=== PATIENT | female | born 1945 | race Caucasian/White ===

== ENCOUNTER → 2017-09-14 | Outpatient (CLI) | payer OTHER ==
--- NOTE | 2017-09-14 11:23 | RAD ---
History: Low back pain Study: Lumbar spine two views Findings: AP and lateral views of the lumbar spine demonstrates mild disc space narrowing at the L4-5 level with minimal degenerative anterolisthesis. There is mild endplate spurring at multiple levels. There are advanced degenerative changes of the lower lumbar apophyseal joints. Pedicles are intact a nd no fracture is seen. Impression: Advanced osteoarthrosis and mild spondylosis of the lumbar spine. Reported By:
== END ==
LOC: RAD 10:21
PROVIDERS: ATTEND Internal Medicine
DX: M54.5 Low back pain (principal); M47.896 Other spondylosis, lumbar region
CPT/HCPCS: 72100

== ENCOUNTER 2019-10-06 15:05 | Inpatient (IN) ==
[~2019-10-06 15:05] MED LIST: ACTEMRA IV ONE; NS 100 ML IV IV ONE
[2019-10-06 15:12] VITALS: BMI 45.7
--- NOTE | 2019-10-06 15:20 | DR.EXTPAIN ---
HPI Time seen Time Seen by Provider: 10/06/19 15:19 PCP Primary Care Physician: cecilio HPI Comment HPI Comment: PATIENT IS 74YR OLD FEMALE IN ER WITH INCREASING SOB AND PLEURITIC CHEST PAIN TIMES SEVERAL DAYS BUT WORSE TODAY. PATIENT HAVE POSITIVE COVID 19 TEST. SHE HAS NON PRODUCTIVE COUGH AND GENERALIZED WEAKNESS AND MALAISE. HISTORY HYPOTHYRIODISM.IN ER O2 SAT WAS IN THE 80S. NO FEVER OR DYSURIA. SHE IS IN ER WITH HER WHO IS ALSO COVID 19 POSITIVE. Complaint/Symptoms Chief Complaint Doctor Comments: INCREASING SOB AND POSITIVE COVID 19 TEST. Chief Complaint:: pt has been short of breath for 10 days , tested 9 days ago and was positive for covid. COVID-19 Coronavirus risk:travel/contact w/high risk person: Yes Has patient experienced Coronavirus symptoms: Yes Coronavirus symptoms experienced: Coughing and Shortness of Breath Nurses notes reviewed Nurses Notes Review: Yes Source History Provided: Patient Mode of arrival Mode of Arrival: Ambulatory Timing Onset of Chief Complaint: 09/27/19 Context History of: None Associated signs and symptoms Associated Signs and Symptoms: Weakness, Pain, Cough, Headache, Pleuritic Chest Pain and Shortness of Breath PMH PMH Past Medical History: Yes Past Medical History: Hypothyroidism Past Surgical History: Yes Surgical History: Unknown Family History History of Family Medical Conditions: Yes Family Medical History: Hypertension Social History Does patient currently use any type of tobacco product: No Have you used tobacco products in the last 12 months: No Type of Tobacco Use: None Does any household member use tobacco: No Alcohol Use: None Do you use any recreational Drugs:: No Lives Where: Home Travel Risk Coronavirus risk:travel/contact w/high risk person: Yes Has patient experienced Coronavirus symptoms: Yes Coronavirus symptoms experienced: Coughing and Shortness of Breath Infectious screening In the last 2 months have you had wt loss of >10#?: NO Have you had fever, night sweats or hemotysis?: No Have you traveled outside the country in the last 6 months?: No Isolation: Droplet ROS Review of Systems Constitutional: See HPI, Malaise, Weakness and Fatigue; negative Chills and Fever Eyes: No Symptoms Reported and See HPI ENTM: See HPI and Nose Congestion; negative Ear Pain, Nose Discharge and Throat Pain Respiratoy: See HPI, Non-Productive Cough and Short of Breath; negative Wheezing Cardiovascular: See HPI and Chest Pain; negative Edema and Palpitations Gastrointestinal/Abdominal: No Symptoms Reported and See HPI; negative Abdominal Pain, Diarrhea and Vomiting Genitourinary: No Symptoms Reported and See HPI; negative Dysuria, Frequency and Hematuria Neurological: See HPI, Headache, Weakness and Dizziness Musculoskeletal: See HPI and Muscle Pain; negative Back Pain Integumentary: No Symptoms Reported and See HPI; negative Change in Color, Rash and Juandice Hematologic/Lymphatic: No Symptoms Reported and See HPI; negative Easy Bruising and Swollen Glands Endocrine: See HPI and Decreased Appetite; negative Increased Thirst and Increased Urine Psychiatric: See HPI PE Vital Signs Vitals: Temperature 97.8 F Pulse Rate 61 Respiratory Rate 16 Blood Pressure 147/65 O2 Sat by Pulse Oximetry 96 General Limitations: No Limitations General Appearance: Alert and In Distress (ON EXERTION.) Head Head Exam: Normal Inspection, Atraumatic and Normocephalic Eyes Eye exam: Normal Appearance, PERRL and EOMI; negative Scleral Icterus and Conjunctival Injection ENT ENT Exam: Normal Exam, Normal Oropharynx, Normal External Ear Exam and TM's Normal Bilaterally Neck Neck Exam: Normal Inspection and Trachea Midline; negative Tenderness and Lymphadenopathy Chest Chest Inspection: Symmetric Chest Wall Rise; negative Tenderness Respiratory Respiratory Exam: Respiratory Distress; negative Accessory Muscle Use and Chest Wall Tenderness Respiratory Exam: Bilateral: Rhonchi and Lower: Rhonchi Cardiovascular Cardiovascular Exam: Regular Rate, Normal Rhythm and Normal Heart Sounds; negative Systolic Murmur and Diastolic Murmur Abdominal Exam Abdominal Exam: Normal Inspection, Normal Bowel Sounds and Soft; negative Tenderness Extremities Extremities Exam: Normal Inspection and Normal Capillary Refill; negative Tenderness, Edema and Calf Tenderness Back Back Exam: Normal Inspection; negative (R) CVA Tenderness and (L) CVA Tenderness Neurological Neurological Exam: Alert, Oriented X3 and CN II-XII Intact; negative Motor Sensory Deficit Psychiatric Psychiatric Exam: Normal Affect and Normal Mood Skin Skin Exam: Dry MDM Differential Diagnosis Differential Diagnosis: Neurovascular Injury and Other (PNEUMONIA, COVID 19 TEST POSITIVE, SOB, WEAKNESS, CP.) COURSE Treatment Treatment: SEE ORDERS. ROCEPHIN 1GM IVPB. Consultation Consultation Comments: DISCUSSED PATIENT WITH DR. GE. HE WILL ADMIT PATIENT. ROR Labs Reviewed Laboratory Results Reviewed?: Yes Result Diagrams: 10/07/19 04:15 10/07/19 04:15 Laboratory: WBC 10.5 X10^3/uL (3.6-10.0) H 10/06/19 16:05 RBC 4.52 X10^6/uL (3.5-5.4) 10/06/19 16:05 Hgb 13.3 g/dL (12.0-16.0) 10/06/19 16:05 Hct 39.1 % (36.0-47.0) 10/06/19 16:05 MCV 86.3 fL (80.0-100.0) 10/06/19 16:05 MCH 29.4 pg (27.0-34.0) 10/06/19 16:05 MCHC 34.1 g/dL (33.0-35.0) 10/06/19 16:05 RDW 14.4 % (11.6-16.5) 10/06/19 16:05 Plt Count 239 X10^3/uL (150.0-450.0) 10/06/19 16:05 MPV 8.7 fL (7.4-11.0) 10/06/19 16:05 Neut % (Auto) 76.7 % (42.0-75.0) H 10/06/19 16:05 Lymph % (Auto) 15.0 % (21.0-51.0) L 10/06/19 16:05 [place] % (Auto) 7.4 % (0.0-13.0) 10/06/19 16:05 Eos % (Auto) 0.5 % (0.9-2.9) L 10/06/19 16:05 Baso % (Auto) 0.4 % (0.2-1.0) 10/06/19 16:05 Neut # (Auto) 8.0 x10^3/uL (2.2-4.8) H 10/06/19 16:05 Lymph # (Auto) 1.6 X10^3/uL (1.3-2.9) 10/06/19 16:05 [place] # (Auto) 0.8 x10^3/uL (0.3-0.8) 10/06/19 16:05 Eos # (Auto) 0.1 x10^3/uL (0.0-0.2) 10/06/19 16:05 Baso # (Auto) 0.0 X10^3/uL (0.0-0.1) 10/06/19 16:05 Absolute Nucleated RBC 0.1 /100WBC 10/06/19 16:05 Sample Site Right brachial 10/06/19 16:20 ABG pH 7.460 (7.35-7.45) H 10/06/19 16:20 ABG pCO2 34.0 mmHg (35.0-45.0) L 10/06/19 16:20 ABG pO2 95.0 mmHg (80.0-100.0) 10/06/19 16:20 ABG HCO3 24.2 mmol/L (22-26) 10/06/19 16:20 ABG O2 Saturation 98.0 % (90-100) 10/06/19 16:20 ABG Base Excess 0.8 mmol/L (-2.0-2.0) 10/06/19 16:20 Chris Test Na 10/06/19 16:20 A-a Gradient 62.0 mmHg 10/06/19 16:20 FiO2 28.0 10/06/19 16:20 Blood Gas Comments Shine well aw 10/06/19 16:20 Sodium 138 mmol/L (136-145) 10/06/19 16:05 Corrected Sodium 138 mmol/L (136-145) 10/06/19 16:05 Potassium 3.6 mmol/L (3.5-5.1) 10/06/19 16:05 Chloride 103 mmol/L (98-107) 10/06/19 16:05 Carbon Dioxide 25.1 mmol/L (21-32) 10/06/19 16:05 BUN 13 mg/dL (7-18) 10/06/19 16:05 Creatinine 0.91 mg/dL (0.55-1.02) 10/06/19 16:05 Est GFR (MDRD) Af Amer > 60 (>60) 10/06/19 16:05 Est GFR (MDRD) Non-Af > 60 (>60) 10/06/19 16:05 Glucose 116 mg/dL (65-99) H 10/06/19 16:05 Lactic Acid 0.6 mmol/L (0.4-2.0) 10/06/19 16:05 Calcium 8.6 mg/dL (8.5-10.1) 10/06/19 16:05 Corrected Calcium 9.2 mg/dL (8.5-10.1) 10/06/19 16:05 Magnesium 1.8 mg/dL (1.7-2.9) 10/06/19 16:20 Ferritin 310 ng/mL (8-252) H 10/06/19 16:20 Total Bilirubin 0.30 mg/dL (0.2-1.0) 10/06/19 16:05 AST 24 Units/L (15-37) 10/06/19 16:05 ALT 21 Units/L (12-78) 10/06/19 16:05 Alkaline Phosphatase 81 Units/L (46-116) 10/06/19 16:05 Lactate Dehydrogenase 426 Units/L (81-234) H 10/06/19 16:20 Creatine Kinase 27 Units/L (26-192) 10/06/19 16:05 CK-MB (CK-2) < 1.0 ng/mL (0-4.0) 10/06/19 16:05 CK/CKMB % Calc 3.7 % (<4) 10/06/19 16:05 Troponin I < 0.02 ng/mL (0-1.5) 10/06/19 16:05 C-Reactive Protein 56.30 mg/L (0-3.0) H 10/06/19 16:20 B-Natriuretic Peptide 29.1 pg/mL (0-79) 10/06/19 16:05 Total Protein 7.2 g/dL (6.4-8.2) 10/06/19 16:05 Albumin 3.3 g/dL (3.4-5.0) L 10/06/19 16:05 Globulin 3.9 g/dL (2.5-4.5) 10/06/19 16:05 Albumin/Globulin Ratio 0.8 Ratio (1.1-2.1) L 10/06/19 16:05 XRAY XRAY Interpreted by: Radiologist (REPORT NOTED AND DISCUSSED WITH PATIENT.) and Self (PNEUMONIA.) EKG Rate: 62 [place]: Normal Rhythm: NSR Block: None Hypertrophy: None ST: Normal Opioid Opioid Risk Tool Age (Tani box if 16-45): No History of Preadolescent Sexual Abuse: No Total: 0 Total Score Risk Category: Low Risk Copyright: Jose Alfredo MALHOTRA predicting aberrant behaviors Diagnosis Discharge Problem: Hypoxia, COVID-19 Pneumonia Qualifiers: Pneumonia type: due to unspecified organism Laterality: bilateral Lung location: unspecified part of lung Qualified Code(s): J18.9 - Pneumonia, unspecified organism Dyspnea Qualifiers: Dyspnea type: shortness of breath Qualified Code(s): R06.02 - Shortness of breath Instructions Instructions: Shortness of Breath, Adult, Euou-xj-Zymb Viral Respiratory Infection, Ppao-Qq-Bhwo Hand Washing, Xoaa-zx-Hxco Hypoxia Droplet Precautions, Muon-rr-Aiwv Contact Precautions, Qcsm-lk-Xbqv Community-Acquired Pneumonia, Adult, Lelk-sx-Bxyr Forms: Precautions for COVID19 Patient Portal Social Distancing
--- NOTE | 2019-10-06 16:10 | RAD ---
HISTORYSOBSTUDYCHEST, 1 VIEWCOMPARISONNone availableFINDINGSTrachea is midline. Heart size enlarged. Coarsened interstitium and peribronchial thickening is noted bilaterally. Lung volumes are decreased. No pleural effusion or pneumothorax.IMPRESSIONCoarsened interstitium and bilateral peribronchial thickening is nonspecific, this can be seen in setting of acute or chronic bronchitis and or atypical/viral pneumonia for which clinical correlation is needed.Cardiomegaly.Electronically signed by: HERI SANZ (Oct 06, 2019 16:08:59)
[2019-10-06 16:29] LABS: ABG BASE EXCESS 0.8 mmol/L (-2.0-2.0); ABG HCO3 24.2 mmol/L (22-26)
[2019-10-06 16:35] LABS: BASOPHILS % (AUTO) 0.4 % (0.2-1.0); EOSINOPHILS # (AUTO) 0.1 x10^3/uL (0.0-0.2); EOSINOPHILS % (AUTO) 0.5 % (0.9-2.9); HEMATOCRIT 39.1 % (36.0-47.0); HEMOGLOBIN 13.3 g/dL (12.0-16.0); LYMPHOCYTES # (AUTO) 1.6 X10^3/uL (1.3-2.9); MEAN CORPUSCULAR HEMOGLOBIN 29.4 pg (27.0-34.0); MEAN CORPUSCULAR HGB CONC 34.1 g/dL (33.0-35.0); MEAN CORPUSCULAR VOLUME 86.3 fL (80.0-100.0); MEAN PLATELET VOLUME 8.7 fL (7.4-11.0); MONOCYTES # (AUTO) 0.8 x10^3/uL (0.3-0.8); MONOCYTES % (AUTO) 7.4 % (0.0-13.0); NEUTROPHILS % (AUTO) 76.7 % (42.0-75.0); PLATELET COUNT 239 X10^3/uL (150.0-450.0); RED BLOOD COUNT 4.52 X10^6/uL (3.5-5.4); RED CELL DISTRIBUTION WIDTH 14.4 % (11.6-16.5); WHITE BLOOD COUNT 10.5 X10^3/uL (3.6-10.0)
[2019-10-06] MEDS ORDERED: ROCEPHIN VIAL 1 GRAM 1 G in NS 100 ML IV + SPIKE MINIBAG* 100 ML IVP ONE (16:42)
[2019-10-06] MEDS ORDERED: NS 1/2 1000 ML IV 1,000 ML IV ONE (16:48)
[2019-10-06] MEDS ORDERED: NS 100 ML IV + SPIKE MINIBAG* 100 ML IV ONE (16:48)
[2019-10-06] MEDS ORDERED: ROCEPHIN VIAL 1 GRAM ONE (16:49)
[2019-10-06 16:51] LABS: BLOOD UREA NITROGEN 13 mg/dL (7-18); CALCIUM 8.6 mg/dL (8.5-10.1); CARBON DIOXIDE 25.1 mmol/L (21-32); CHLORIDE 103 mmol/L (98-107); COR NA(FOR HYPERGLY) 138 mmol/L (136-145); CREATININE 0.91 mg/dL (0.55-1.02); SODIUM 138 mmol/L (136-145); TROPONIN I < 0.02 ng/mL (0-1.5); eGFR NON BLACK RACES > 60 (>60)
[2019-10-06 16:54] LABS: LACTIC ACID 0.6 mmol/L (0.4-2.0)
[2019-10-06 16:56] LABS: ALANINE AMINOTRANSFERASE 21 Units/L (12-78); ALBUMIN 3.3 g/dL (3.4-5.0); ALKALINE PHOSPHATASE 81 Units/L (46-116); ASPARTATE AMINO TRANSFERASE 24 Units/L (15-37); CKMB % 3.7 % (<4); COR CA(FOR HYPOALB) 9.2 mg/dL (8.5-10.1); CREATINE KINASE 27 Units/L (26-192); CREATINE KINASE MB < 1.0 ng/mL (0-4.0); TOTAL PROTEIN 7.2 g/dL (6.4-8.2)
[2019-10-06] MEDS ORDERED: NS 1/2 1000 ML IV 1,000 ML IV SCH ×2 (17:00→18:00)
[2019-10-06] MEDS ORDERED: MICRO K EXTEN CAP 10 MEQ PO PRN (18:34)
[2019-10-06] MEDS ORDERED: K-RIDER 10 MEQ/NS 100 ML 10 MEQ/100 ML BAG IV PRN (18:34)
[2019-10-06] MEDS ORDERED: MAGNESIUM SULFATE 1 GRAM/100 mL PREMIX 1 GM/100 ML BAG IV PRN (18:34)
[2019-10-06] MEDS ORDERED: POTASSIUM CHL 40 MEQ/NS 0.45% 500 ML IV PRN (18:34)
[2019-10-06] MEDS ORDERED: POTASSIUM CHLORIDE LIQ 20 MEQ UDC PO PRN (18:34)
[2019-10-06] MEDS ORDERED: POTASSIUM CHL 60 MEQ/NS 0.45% 500 ML IV PRN (18:34)
[2019-10-06] MEDS ORDERED: KLOR-CON PO PRN (18:34)
[2019-10-06] MEDS ORDERED: K-DUR TAB 20 MEQ PO PRN (18:34)
[2019-10-06] MEDS ORDERED: REMDESIVIR (INVESTIGATIONAL DRUG GS-5734) 200 MG in NS 250 ML IV 250 ML IV NR (19:45)
[2019-10-06] MEDS ORDERED: ACTEMRA 400 MG in NS 100 ML IV 80 ML IV NR (19:45)
[2019-10-06] MEDS: ROBITUSSIN DM PO SCH (20:24)
[2019-10-06] MEDS: VENTOLIN or PROAIR HFA IN PRN (20:57)
[2019-10-06] MEDS ORDERED: PLAQUENIL PO SCH (23:00)
[2019-10-06] MEDS ORDERED: VITAMIN A PO SCH (23:00)
[2019-10-06] MEDS: CORTEF PO SCH (23:13)
[2019-10-06] MEDS: LOVENOX INJ 30 MG SYR SC SCH (23:13)
[2019-10-06] MEDS: ZINC SULFATE PO SCH (23:14)
[2019-10-06] MEDS: VITAMIN D (1.25MG) PO SCH (23:14)
[2019-10-06] MEDS: THIAMINE HCL INJ IVP SCH (23:15)
[2019-10-07] MEDS ORDERED: NS 100 ML IV 100 ML IV ONE ×2 (01:45→08:53)
[2019-10-07] MEDS: ASCORBIC ACID INJ MULTI-DOSE VIAL 1,500 MG in NS 100 ML IV 100 ML IV SCH ×2 (03:02→09:08)
[2019-10-07 04:49] LABS: ABG HCO3 25.2 mmol/L (22-26)
[2019-10-07 05:34] LABS: BASOPHILS # (AUTO) 0.1 X10^3/uL (0.0-0.1); BASOPHILS % (AUTO) 0.9 % (0.2-1.0); EOSINOPHILS # (AUTO) 0.1 x10^3/uL (0.0-0.2); EOSINOPHILS % (AUTO) 1.4 % (0.9-2.9); HEMATOCRIT 38.7 % (36.0-47.0); HEMOGLOBIN 13.1 g/dL (12.0-16.0); LYMPHOCYTES # (AUTO) 2.2 X10^3/uL (1.3-2.9); LYMPHOCYTES % (AUTO) 37.5 % (21.0-51.0); MEAN CORPUSCULAR HEMOGLOBIN 29.3 pg (27.0-34.0); MEAN CORPUSCULAR HGB CONC 33.8 g/dL (33.0-35.0); MEAN CORPUSCULAR VOLUME 86.9 fL (80.0-100.0); MEAN PLATELET VOLUME 9.3 fL (7.4-11.0); MONOCYTES # (AUTO) 0.5 x10^3/uL (0.3-0.8); MONOCYTES % (AUTO) 8.7 % (0.0-13.0); NEUTROPHILS % (AUTO) 51.5 % (42.0-75.0); PLATELET COUNT 212 X10^3/uL (150.0-450.0); RED BLOOD COUNT 4.45 X10^6/uL (3.5-5.4); RED CELL DISTRIBUTION WIDTH 14.6 % (11.6-16.5); WHITE BLOOD COUNT 5.8 X10^3/uL (3.6-10.0)
[2019-10-07 05:39] LABS: ALANINE AMINOTRANSFERASE 20 Units/L (12-78); ALBUMIN 2.9 g/dL (3.4-5.0); ALKALINE PHOSPHATASE 73 Units/L (46-116); ASPARTATE AMINO TRANSFERASE 24 Units/L (15-37); BLOOD UREA NITROGEN 11 mg/dL (7-18); CALCIUM 7.9 mg/dL (8.5-10.1); CARBON DIOXIDE 27.4 mmol/L (21-32); CHLORIDE 104 mmol/L (98-107); COR CA(FOR HYPOALB) 8.8 mg/dL (8.5-10.1); CREATININE 0.91 mg/dL (0.55-1.02); MAGNESIUM 2.5 mg/dL (1.7-2.9); SODIUM 139 mmol/L (136-145); TOTAL PROTEIN 6.6 g/dL (6.4-8.2); eGFR NON BLACK RACES > 60 (>60)
--- NOTE | 2019-10-07 06:15 | RAD ---
Chest AP portableIndication: Dyspnea. Viral pneumoniaComparison October 06, 2019FINDINGSThere is no pneumothorax. Patchy pulmonary opacities are noted, somewhat peripherally located. Heart size is prominentIMPRESSIONProminent heart size and patchy pulmonary opacities, similar to the prior.Electronically signed by: LEONIDAS STARK (Oct 07, 2019 06:13:35)
[2019-10-07] MEDS: VENTOLIN or PROAIR HFA IN PRN ×4 (08:00→21:38)
[2019-10-07] MEDS ORDERED: ROCEPHIN VIAL 1 GRAM 1 G in NS 100 ML IV + SPIKE MINIBAG* 100 ML IV SCH (09:00)
[2019-10-07] MEDS: VSL#3 PO SCH (09:08)
[2019-10-07] MEDS: ZINC SULFATE PO SCH (09:08)
[2019-10-07] MEDS: REMDESIVIR (INVESTIGATIONAL DRUG GS-5734) 100 MG in NS 250 ML IV 250 ML IV SCH (09:09)
[2019-10-07] MEDS: THIAMINE HCL INJ IVP SCH (09:09)
[2019-10-07] MEDS: ROBITUSSIN DM PO SCH ×4 (09:09→21:07)
[2019-10-07] MEDS: CORTEF PO SCH (09:09)
[2019-10-07] MEDS: VITAMIN D (1.25MG) PO SCH (09:12)
[2019-10-07] MEDS: LOVENOX INJ 30 MG SYR SC SCH (09:30)
[2019-10-07] MEDS ORDERED: HumuLIN R SUBCUT PRN (10:01)
--- NOTE | 2019-10-07 11:00 | DR.H&P ---
H&P - History & Physical for Day of: H&P Date: 10/06/19 - Chief Complaint Chief Complaint: COUGH, SOB, FEVER, COVID-19 POSITIVE - History of Present Illness History of Present Illness: IS A 74 YEAR OLD PATIENT OF OURS. SHE PRESENTED TO THE ER WITH COMPLAINTS OF SHORTNESS OF BREATH, COUGH, AND FEVER X 10 DAYS. PATIENT REPORTS TESTING POSITIVE FOR COVID-19 APPROXIMATELY A WEEK AGO. SHE REPORTS THAT SHE STARTED TAKING LEVAQUIN 500MG PO DAILY AND A MEDROL DOSEPACK ON 09/26/19, HOWEVER, SHE DENIES IMPROVEMENT IN SYMPTOMS. HER PMH INCLUDES: ASTHMA, ARTHRITIS, CHRONIC BACK PAIN, HYPOTHYROIDISM, ANXIETY, DEPRESSION, HERNIA REPAIR, AND CARPEL TUNNEL SURGERY. ON ARRIVAL TO THE HOSPITAL, VITALS WERE 97.8-79-16-88%RA-120/57. LABS WERE OBTAINED. ABNORMAL LAB VALUES INCLUDE THE FOLLOWING: WBC 10.5, GLUCOSE 116, ALBUMIN 3.3. CARDIAC ENZYME S WERE WITHIN NORMAL LIMITS. AN ABG WAS OBTAINED AND REVEALED: PH 7.460, PC02 34.0, P02 95.0, HC03 24.2, 02 STURATION 98.0, BASE EXCESS 0.8. BLOOD CULTURES WERE SET UP. A CHEST XRAY WAS OBTAINED AND REVEALED: Coarsened interstitium and bilateral peribronchial thickening is nonspecific, this can be seen in setting of acute or chronic bronchitis and or atypical/viral pneumonia for which clinical correlation is needed. Cardiomegaly. EKG REVEALED: SINUS RHYTHM WITH HR 62. SHE WAS ADMITTED TO THE HOSPITAL FOR FURTHER EVALUATION AND TREATMENT OF COVID-19, PNEUMONIA, HYPOXIA, AND SOB. SHE WAS GIVEN ROCEPHIN 1G IV X 1 DOSE, ACTEMRA 400MG IV X 1 DOSE, REMDESIVIR 200MG IV X 1 DOSE. WE THEN PLANNED TO START 1/2NS AT 50 ML/HR, LEVAQUIN 500MG IV DAILY, REMDESIVIR 100MG IV DAILY, TUSSIONEX 5ML Q12H, TESSALON PERLES, PRO AIR INHALER 2 PUFFS Q4H PRN, AND THE POTASSIUM AND MAGNESIUM PROTOCOLS. TODAY, WE WILL ADD SOLU-MEDROL 40MG IV Q8H AND HUMULIN R SLIDIDNG SCALE. OTHERWISE, WE WILL CONTINUE WITH CURRENT PLAN OF CARE. WE PLAN TO FOLLOW UP WITH AM LABS AND CONTINUE TO MONITOR. - Past Medical History Past Medical History: Anxiety, Arthritis, Asthma, Depression, Hypothyroidism - Past Surgical History Additional Surgical History: HERNIA REPAIR, CARPEL TUNNEL SURGERY - Family History Family Medical History: Cancer, Hypertension - Social History Does patient currently use any type of tobacco product: No Have you used tobacco products in the last 12 months: No Type of Tobacco Use: None Does any household member use tobacco: No Alcohol Use: None Drug Use: None Prescription drug monitoring program results: PDMP was not reviewed - Medications Home Medications: No Known Drug Allergies Allergy (Verified 10/06/19 15:07) - Review of Systems Constitutional: Fever, Weakness Eyes: No Symptoms Reported ENT: No Symptoms Reported Respiratory: Cough, Shortness of Breath, SOB with Excertion, Wheezing Cardiovascular: No Symptoms Reported Gastrointestinal: No Symptoms Reported Genitourinary: No Symptoms Reported Musculoskeletal: No Symptoms Reported Skin: No Symptoms Reported Neurological: Weakness - Physical Exam Vital Signs: Temperature 98.0 F Pulse Rate [Left Radial] 53 Pulse Rate 64 Respiratory Rate 18 Blood Pressure [Left Arm] 111/87 Blood Pressure 148/68 O2 Sat by Pulse Oximetry 98 Oriented: Normal Eyes: Normal Ear: Normal Nose: Normal Throat: Normal Respiratory: Wheezes Throughout Cardiovascular: Normal. negative: S3, S4, Murmur : Normal Auscultation: Bowel Sounds: Normal Palpation: Normal Tenderness: Normal Skin: Normal Musculoskeletal: Normal Psychiatric: Normal Mood Description: Calm Affect: Normal Speech Pattern: Clear - Assessment/Plan (1) COVID-19 Status: Acute Plan: ADMIT, ROCEPHIN 1G IV X 1 DOSE, ACTEMRA 400MG IV X 1 DOSE, REMDESIVIR 200MG IV X 1 DOSE, THEN 1/2NS AT 50 ML/HR, LEVAQUIN 500MG IV DAILY, REMDESIVIR 100MG IV DAILY, SOLU-MEDROL 40MG IV Q8H, HUMULIN R SLIDING SCALE, TUSSIONEX 5ML Q12H, TESSALON PERLES, PRO AIR INHALER 2 PUFFS Q4H PRN, AND THE POTASSIUM AND MAGNESIUM PROTOCOLS (2) Pneumonia Qualifiers: Pneumonia type: due to unspecified organism Laterality: bilateral Lung location: unspecified part of lung Qualified Code(s): J18.9 - Pneumonia, unspecified organism Status: Acute (3) Hypoxia Status: Acute (4) Dyspnea Qualifiers: Dyspnea type: shortness of breath Qualified Code(s): R06.02 - Shortness of breath; R06.00 - Dyspnea, unspecified; R06.01 - Orthopnea Status: Acute - Allergies Allergies/Adverse Reactions: Allergies Allergy/AdvReac Type Severity Reaction Status Date / Time No Known Drug Allergies Allergy Verified 10/06/19 15:07
[2019-10-07] MEDS: LEVAQUIN PREMIX IV 500 MG 500 MG/100 ML BAG IV SCH (12:50)
[2019-10-07] MEDS: SOLU-Medrol 40 MG VIAL IVP SCH ×4 (12:51→21:40)
[2019-10-07] MEDS ORDERED: PROzac PO SCH (14:00)
[2019-10-07] MEDS: DITROPAN TAB 5 MG PO SCH ×2 (16:23→21:06)
[2019-10-07] MEDS: SINGULAIR TAB 10 MG PO SCH (16:50)
[2019-10-07] MEDS: PriLOSEC PO SCH (16:51)
[2019-10-07] MEDS: SYNTHROID 75 mcg TAB PO SCH (16:52)
[2019-10-07] MEDS: KLONOPIN TAB 0.5 MG PO PRN (19:00)
[2019-10-07] MEDS: SNACK - Diabetic Appropriate PO SCH (21:07)
[2019-10-08] MEDS: TUSSIONEX PENNKINETIC SUSP PO PRN (00:22)
[2019-10-08] MEDS ORDERED: NS 1/2 1000 ML IV 1,000 ML IV ONE (03:30)
[2019-10-08] MEDS: NS 1/2 1000 ML IV 1,000 ML IV PRN (03:31)
[2019-10-08 05:36] LABS: BASOPHILS % (AUTO) 0.5 % (0.2-1.0); EOSINOPHILS % (AUTO) 0.1 % (0.9-2.9); HEMATOCRIT 38.1 % (36.0-47.0); HEMOGLOBIN 12.7 g/dL (12.0-16.0); LYMPHOCYTES # (AUTO) 1.4 X10^3/uL (1.3-2.9); LYMPHOCYTES % (AUTO) 18.6 % (21.0-51.0); MEAN CORPUSCULAR HEMOGLOBIN 29.1 pg (27.0-34.0); MEAN CORPUSCULAR HGB CONC 33.4 g/dL (33.0-35.0); MEAN CORPUSCULAR VOLUME 87.2 fL (80.0-100.0); MEAN PLATELET VOLUME 9.7 fL (7.4-11.0); MONOCYTES # (AUTO) 0.3 x10^3/uL (0.3-0.8); NEUTROPHILS % (AUTO) 76.8 % (42.0-75.0); PLATELET COUNT 247 X10^3/uL (150.0-450.0); RED BLOOD COUNT 4.37 X10^6/uL (3.5-5.4); RED CELL DISTRIBUTION WIDTH 14.3 % (11.6-16.5); WHITE BLOOD COUNT 7.8 X10^3/uL (3.6-10.0)
[2019-10-08 05:52] LABS: ALANINE AMINOTRANSFERASE 22 Units/L (12-78); ALBUMIN 2.8 g/dL (3.4-5.0); ALKALINE PHOSPHATASE 77 Units/L (46-116); ASPARTATE AMINO TRANSFERASE 24 Units/L (15-37); BLOOD UREA NITROGEN 12 mg/dL (7-18); CALCIUM 8.4 mg/dL (8.5-10.1); CARBON DIOXIDE 24.7 mmol/L (21-32); CHLORIDE 104 mmol/L (98-107); COR CA(FOR HYPOALB) 9.4 mg/dL (8.5-10.1); COR NA(FOR HYPERGLY) 139 mmol/L (136-145); CREATININE 0.87 mg/dL (0.55-1.02); SODIUM 138 mmol/L (136-145); TOTAL PROTEIN 6.7 g/dL (6.4-8.2); eGFR NON BLACK RACES > 60 (>60)
[2019-10-08] MEDS: SOLU-Medrol 40 MG VIAL IVP SCH (06:00)
--- NOTE | 2019-10-08 06:19 | RAD ---
HISTORYSOB asthmaSTUDYPortable AP [id number]/15/2020FINDINGSStable heart size. Bilateral increase in vascularity and linear pulmonary markings without evidence for segmental or lobar consolidation. The hilar structures remain normal and symmetric. No complicating pleural fluid or pneumothorax seen.IMPRESSIONPersistent pulmonary vascular and interstitial prominence which may reflect diffuse inflammatory process or atypical pneumonia.Electronically signed by: MIKKI MCNEILL (Oct 08, 2019 06:17:50)
[2019-10-08] MEDS: PriLOSEC PO SCH (08:45)
[2019-10-08] MEDS: LOVENOX INJ 40 MG SYR SC SCH (08:45)
[2019-10-08] MEDS: SINGULAIR TAB 10 MG PO SCH (08:45)
[2019-10-08] MEDS: SYNTHROID 75 mcg TAB PO SCH (08:45)
[2019-10-08] MEDS: ROBITUSSIN DM PO SCH ×4 (08:45→20:52)
[2019-10-08] MEDS: VSL#3 PO SCH (08:45)
[2019-10-08] MEDS: PROzac PO SCH (08:45)
[2019-10-08] MEDS: LEVAQUIN PREMIX IV 500 MG 500 MG/100 ML BAG IV SCH (08:45)
[2019-10-08] MEDS: DITROPAN TAB 5 MG PO SCH ×2 (08:45→20:52)
[2019-10-08] MEDS ORDERED: LOVENOX INJ 40 MG SYR SC SCH (09:00)
[2019-10-08] MEDS ORDERED: VITAMIN D3 25 mcg (1,000 UNITS) PO SCH (09:00)
[2019-10-08] MEDS ORDERED: VITAMIN A PO SCH (09:00)
[2019-10-08] MEDS: VENTOLIN or PROAIR HFA IN PRN ×4 (09:50→20:20)
[2019-10-08] MEDS ORDERED: TORADOL 30 MG VIAL IVP SCH (10:00)
[2019-10-08] MEDS: REMDESIVIR (INVESTIGATIONAL DRUG GS-5734) 100 MG in NS 250 ML IV 250 ML IV SCH (10:25)
[2019-10-08] MEDS ORDERED: TORADOL 30 MG VIAL ONE (14:02)
[2019-10-08] MEDS ORDERED: ROBITUSSIN DM ONE (14:02)
[2019-10-08] MEDS: TORADOL 30 MG VIAL IVP SCH ×2 (14:40→22:05)
--- NOTE | 2019-10-08 15:46 | PCM.PROG ---
Progress Note - Progress Note for Day of Date of Exam: 10/08/19 - Subjective Subjective: IS BEING TREATED FOR COVID-19, PNEUMONIA, HYPOXIA, AND SHORTNESS OF BREATH. TODAY, SHE IS ALERT AND OREINTED, LYING IN BED ON MORNING ROUNDS. SHE REPORTS BEING ANXIOUS. PATIENT REPORTS THAT ANYTIME SHE TAKES STEROIDS, SHE GETS ANXIOUS. SHE REQUEST TO DISCONTINUE THE SOLU-MEDROL THAT SHE IS ON. SHE CONTINUES WITH A NON-PRODUCTIVE COUGH AND SHORTNESS OF BREATH. ON EXAMINATION, HEART IS REGULAR IN RATE AND RHYTHM. BILATERAL LUNGS ARE NOTED WITH SCATTERED WHEEZING THROUGHOUT. ABDOMEN IS ROUND, SOFT, AND NON-TENDER WITH NORMAL BOWEL SOUNDS NOTED IN ALL QUADRANTS. HER VITALS THIS MORNING ARE: 98.6-54-18-97%NC-136/63. LABS WERE OBTAINED. ABNORMAL LAB VALUES INCLUDE THE FOLLOWING: GLUCOSE 136, CALCIUM 8.4, FERRITIN 282, TOTAL BILI 0.10, CRP 28.80, ALBUMIN 2.8. BLOOD CULTURES ARE PENDING. A CHEST XRAY WAS OBTAINED AND REVEALED: Persistent pulmonary vascular and interstitial prominence which may reflect diffuse inflammatory process or atypical pneumonia. SHE IS CURRENTLY RECEIVING 1/2NS AT 50 ML/HR, LEVAQUIN 500MG IV DAILY, REMDESIVIR 100MG IV DAILY, TUSSIONEX 5ML Q12H, TESSALON PERLES, SOLU-MEDROL 40MG IV Q8H, PRO AIR INHALER 2 PUFFS Q4H PRN, HUMULIN R SLIDING SCALE, AND THE POTASSIUM AND MAGNESIUM PROTOCOLS. WE WILL DISCONTINUE THE SOLU-MEDROL TODAY AND START TORADOL 30MG IV Q8H. OTHERWISE, WE WILL FOLLOW UP WITH AM LABS AND CHEST XRAY AND CONTINUE TO MONITOR. - Past Medical Family Social History Past Med/Fam/Surg Hx: No changes since H&P Allergies: Allergies No Known Drug Allergies Allergy (Verified 10/06/19 15:07) - Review of Systems ROS: No change since H&P - Vital Signs and I&O's Vital Signs: Temperature 98.8 F Pulse Rate [Left Radial] 57 Pulse Rate 69 Respiratory Rate 18 Blood Pressure [Left Arm] 140/63 Blood Pressure 148/68 O2 Sat by Pulse Oximetry 97 Intake and Output: Intake & Output 10/06/19 10/07/19 10/08/19 10/09/19 11:59 11:59 11:59 11:59 Intake Total 1500 / 1500 2980 / 2980 1126 / 1126 Output Total 0 / 0 600 / 600 Balance 1500 / 1500 2380 / 2380 1126 / 1126 - Physical Exam Oriented: Normal Eyes: Normal Ear: Normal Nose: Normal Throat: Normal Respiratory: Generalized, Wheezes Cardiovascular: Normal. negative: S3, S4, Murmur : Normal Auscultation: Bowel Sounds: Normal Palpation: Normal Tenderness: Normal Skin: Normal Musculoskeletal: Normal Psychiatric: Normal Mood Description: Calm Affect: Normal Speech Pattern: Clear, Appropriate - Laboratory and Diagnostics Result Diagrams: 10/08/19 04:15 10/08/19 04:15 Labs: Laboratory WBC 7.8 X10^3/uL (3.6-10.0) 10/08/19 04:15 RBC 4.37 X10^6/uL (3.5-5.4) 10/08/19 04:15 Hgb 12.7 g/dL (12.0-16.0) 10/08/19 04:15 Hct 38.1 % (36.0-47.0) 10/08/19 04:15 MCV 87.2 fL (80.0-100.0) 10/08/19 04:15 MCH 29.1 pg (27.0-34.0) 10/08/19 04:15 MCHC 33.4 g/dL (33.0-35.0) 10/08/19 04:15 RDW 14.3 % (11.6-16.5) 10/08/19 04:15 Plt Count 247 X10^3/uL (150.0-450.0) 10/08/19 04:15 MPV 9.7 fL (7.4-11.0) 10/08/19 04:15 Neut % (Auto) 76.8 % (42.0-75.0) H 10/08/19 04:15 Lymph % (Auto) 18.6 % (21.0-51.0) L 10/08/19 04:15 [place] % (Auto) 4.0 % (0.0-13.0) 10/08/19 04:15 Eos % (Auto) 0.1 % (0.9-2.9) L 10/08/19 04:15 Baso % (Auto) 0.5 % (0.2-1.0) 10/08/19 04:15 Neut # (Auto) 6.0 x10^3/uL (2.2-4.8) H 10/08/19 04:15 Lymph # (Auto) 1.4 X10^3/uL (1.3-2.9) 10/08/19 04:15 [place] # (Auto) 0.3 x10^3/uL (0.3-0.8) 10/08/19 04:15 Eos # (Auto) 0.0 x10^3/uL (0.0-0.2) 10/08/19 04:15 Baso # (Auto) 0.0 X10^3/uL (0.0-0.1) 10/08/19 04:15 Absolute Nucleated RBC 0.0 /100WBC 10/08/19 04:15 Sample Site Lb 10/07/19 04:39 ABG pH 7.430 (7.35-7.45) 10/07/19 04:39 ABG pCO2 38.0 mmHg (35.0-45.0) 10/07/19 04:39 ABG pO2 102.0 mmHg (80.0-100.0) H 10/07/19 04:39 ABG HCO3 25.2 mmol/L (22-26) 10/07/19 04:39 ABG O2 Saturation 98.0 % (90-100) 10/07/19 04:39 ABG Base Excess 1.0 mmol/L (-2.0-2.0) 10/07/19 04:39 Chris Test N/a 10/07/19 04:39 A-a Gradient 50.0 mmHg 10/07/19 04:39 FiO2 28.0 10/07/19 04:39 Blood Gas Comments Shine well ae 10/07/19 04:39 Sodium 138 mmol/L (136-145) 10/08/19 04:15 Corrected Sodium 139 mmol/L (136-145) 10/08/19 04:15 Potassium 4.5 mmol/L (3.5-5.1) 10/08/19 04:15 Chloride 104 mmol/L (98-107) 10/08/19 04:15 Carbon Dioxide 24.7 mmol/L (21-32) 10/08/19 04:15 BUN 12 mg/dL (7-18) 10/08/19 04:15 Creatinine 0.87 mg/dL (0.55-1.02) 10/08/19 04:15 Est GFR (MDRD) Af Amer > 60 (>60) 10/08/19 04:15 Est GFR (MDRD) Non-Af > 60 (>60) 10/08/19 04:15 Glucose 136 mg/dL (65-99) H 10/08/19 04:15 Lactic Acid 0.6 mmol/L (0.4-2.0) 10/06/19 16:05 Calcium 8.4 mg/dL (8.5-10.1) L 10/08/19 04:15 Corrected Calcium 9.4 mg/dL (8.5-10.1) 10/08/19 04:15 Magnesium 2.5 mg/dL (1.7-2.9) 10/07/19 04:15 Ferritin 282 ng/mL (8-252) H 10/08/19 04:15 Total Bilirubin 0.10 mg/dL (0.2-1.0) L 10/08/19 04:15 AST 24 Units/L (15-37) 10/08/19 04:15 ALT 22 Units/L (12-78) 10/08/19 04:15 Alkaline Phosphatase 77 Units/L (46-116) 10/08/19 04:15 Lactate Dehydrogenase 426 Units/L (81-234) H 10/06/19 16:20 Creatine Kinase 27 Units/L (26-192) 10/06/19 16:05 CK-MB (CK-2) < 1.0 ng/mL (0-4.0) 10/06/19 16:05 CK/CKMB % Calc 3.7 % (<4) 10/06/19 16:05 Troponin I < 0.02 ng/mL (0-1.5) 10/06/19 16:05 C-Reactive Protein 28.80 mg/L (0-3.0) H 10/08/19 04:15 B-Natriuretic Peptide 29.1 pg/mL (0-79) 10/06/19 16:05 Total Protein 6.7 g/dL (6.4-8.2) 10/08/19 04:15 Albumin 2.8 g/dL (3.4-5.0) L 10/08/19 04:15 Globulin 3.9 g/dL (2.5-4.5) 10/08/19 04:15 Albumin/Globulin Ratio 0.7 Ratio (1.1-2.1) L 10/08/19 04:15 - Plan (1) COVID-19 Status: Acute Plan: REMDESIVIR 100MG IV DAILY, 1/2NS AT 50 ML/HR, LEVAQUIN 500MG IV DAILY, REMDESIVIR 100MG IV DAILY, TORADOL 30MG IV Q8H, HUMULIN R SLIDING SCALE, TUSSIONEX 5ML Q12H, TESSALON PERLES, PRO AIR INHALER 2 PUFFS Q4H PRN, AND THE POTASSIUM AND MAGNESIUM PROTOCOLS (2) Pneumonia Status: Acute Qualifiers: Pneumonia type: due to unspecified organism Laterality: bilateral Lung location: unspecified part of lung Qualified Code(s): J18.9 - Pneumonia, unspecified organism (3) Hypoxia Status: Acute (4) Dyspnea Status: Acute Qualifiers: Dyspnea type: shortness of breath Qualified Code(s): R06.02 - Shortness of breath; R06.00 - Dyspnea, unspecified; R06.01 - Orthopnea
[2019-10-08] MEDS: SNACK - Diabetic Appropriate PO SCH (20:51)
[2019-10-09] MEDS ORDERED: NS 1/2 1000 ML IV 1,000 ML IV ONE (03:18)
[2019-10-09] MEDS: NS 1/2 1000 ML IV 1,000 ML IV PRN (05:29)
[2019-10-09 05:55] LABS: BASOPHILS % (AUTO) 0.3 % (0.2-1.0); EOSINOPHILS # (AUTO) 0.2 x10^3/uL (0.0-0.2); EOSINOPHILS % (AUTO) 2.3 % (0.9-2.9); HEMATOCRIT 37.4 % (36.0-47.0); HEMOGLOBIN 12.2 g/dL (12.0-16.0); LYMPHOCYTES # (AUTO) 2.7 X10^3/uL (1.3-2.9); LYMPHOCYTES % (AUTO) 32.9 % (21.0-51.0); MEAN CORPUSCULAR HEMOGLOBIN 28.5 pg (27.0-34.0); MEAN CORPUSCULAR HGB CONC 32.5 g/dL (33.0-35.0); MEAN CORPUSCULAR VOLUME 87.7 fL (80.0-100.0); MEAN PLATELET VOLUME 9.6 fL (7.4-11.0); MONOCYTES # (AUTO) 0.6 x10^3/uL (0.3-0.8); MONOCYTES % (AUTO) 7.5 % (0.0-13.0); NEUTROPHILS # (AUTO) 4.8 x10^3/uL (2.2-4.8); PLATELET COUNT 252 X10^3/uL (150.0-450.0); RED BLOOD COUNT 4.27 X10^6/uL (3.5-5.4); RED CELL DISTRIBUTION WIDTH 14.3 % (11.6-16.5); WHITE BLOOD COUNT 8.3 X10^3/uL (3.6-10.0)
[2019-10-09 05:58] LABS: ALANINE AMINOTRANSFERASE 21 Units/L (12-78); ALBUMIN 2.6 g/dL (3.4-5.0); ALKALINE PHOSPHATASE 66 Units/L (46-116); ASPARTATE AMINO TRANSFERASE 18 Units/L (15-37); BLOOD UREA NITROGEN 16 mg/dL (7-18); CALCIUM 7.9 mg/dL (8.5-10.1); CARBON DIOXIDE 27.4 mmol/L (21-32); CHLORIDE 106 mmol/L (98-107); CREATININE 0.98 mg/dL (0.55-1.02); SODIUM 139 mmol/L (136-145); eGFR NON BLACK RACES 59 (>60)
--- NOTE | 2019-10-09 06:33 | RAD ---
HISTORYShortness of breathSTUDYChest AP [id number]/16/2020FINDINGSThe heart is mildly enlarged. Pulmonary venous congestion is present. Bilateral perihilar interstitial prominence is present and increasing. This could be due to a worsening pneumonitis or edema. No alveolar infiltrates or pleural effusions are identified. The bony thorax is unremarkable.IMPRESSIONCardiomegaly with increasing pulmonary venous congestion and perihilar interstitial change which could represent edema or pneumonitis.Electronically signed by: MOO BRAND (Oct 09, 2019 06:32:37)
[2019-10-09] MEDS ORDERED: VSL#3 PO ONE (09:18)
[2019-10-09] MEDS: PROzac PO SCH (09:19)
[2019-10-09] MEDS: PriLOSEC PO SCH (09:20)
[2019-10-09] MEDS: SINGULAIR TAB 10 MG PO SCH (09:20)
[2019-10-09] MEDS: LEVAQUIN PREMIX IV 500 MG 500 MG/100 ML BAG IV SCH (09:20)
[2019-10-09] MEDS: ROBITUSSIN DM PO SCH ×4 (09:21→21:09)
[2019-10-09] MEDS: SYNTHROID 75 mcg TAB PO SCH (09:21)
[2019-10-09] MEDS: VSL#3 PO SCH (09:21)
[2019-10-09] MEDS: REMDESIVIR (INVESTIGATIONAL DRUG GS-5734) 100 MG in NS 250 ML IV 250 ML IV SCH (09:22)
[2019-10-09] MEDS: TORADOL 30 MG VIAL IVP SCH ×3 (09:22→22:19)
[2019-10-09] MEDS ORDERED: DITROPAN TAB 5 MG PO ONE (09:56)
[2019-10-09] MEDS: DITROPAN TAB 5 MG PO SCH ×2 (10:25→21:09)
[2019-10-09] MEDS: LOVENOX INJ 40 MG SYR SC SCH (10:26)
[2019-10-09] MEDS: DUONEB 0.5 MG/3 MG (3 mL) NEB SCH ×3 (12:15→21:00)
[2019-10-09] MEDS: KLONOPIN TAB 0.5 MG PO PRN (18:45)
[2019-10-09] MEDS: SNACK - Diabetic Appropriate PO SCH (20:21)
[2019-10-09] MEDS: PULMICORT NEB TX 0.5 MG NEB SCH (21:00)
--- NOTE | 2019-10-09 22:57 | PCM.PROG ---
Progress Note - Progress Note for Day of Date of Exam: 10/09/19 - Subjective Subjective: IS BEING TREATED FOR COVID-19, PNEUMONIA, HYPOXIA, AND SHORTNESS OF BREATH. TODAY, SHE IS ALERT AND OREINTED, LYING IN BED ON MORNING ROUNDS. SHE CONTINUES WITH A NON-PRODUCTIVE COUGH AND SHORTNESS OF BREATH. SHE HAS BEEN AFEBRILE THROUGHOUT THE NIGHT. ON EXAMINATION, HEART IS REGULAR IN RATE AND RHYTHM. BILATERAL LUNGS ARE NOTED WITH SCATTERED WHEEZING THROUGHOUT. ABDOMEN IS ROUND, SOFT, AND NON-TENDER WITH NORMAL BOWEL SOUNDS NOTED IN ALL QUADRANTS. HER VITALS THIS MORNING ARE: 98.2-52-16-100%-146/67. LABS WERE OBTAINED. ABNORMAL LAB VALUES INCLUDE THE FOLLOWING: GLUCOSE 110, CALCIUM 7.9, TOTAL BILI 0.10, CRP 12.30, TOTAL PROTEIN 6.0, ALBUMIN 2.6. BLOOD CULTURES ARE PENDING. A CHEST XRAY WAS OBTAINED AND REVEALED: Cardiomegaly with increasing pulmonary venous congestion and perihilar interstitial change which could represent edema or pneumonitis. SHE IS CURRENTLY RECEIVING 1/2NS AT 50 ML/HR, LEVAQUIN 500MG IV DAILY, REMDESIVIR 100MG IV DAILY, TUSSIONEX 5ML Q12H, TESSALON PERLES, SOLU-MEDROL 40MG IV Q8H, PRO AIR INHALER 2 PUFFS Q4H PRN, TORADOL 30MG IV Q8H, HUMULIN R SLIDING SCALE, AND THE POTASSIUM AND MAGNESIUM PROTOCOLS. WE WILL DISCONTINUE PRO AIR INHALER TODAY AND START DUONEBS TID AND PULMICORT NEBS BID. OTHERWISE, WE WILL FOLLOW UP WITH AM LABS AND CHEST XRAY AND CONTINUE TO MONITOR. - Past Medical Family Social History Past Med/Fam/Surg Hx: No changes since H&P Allergies: Allergies No Known Drug Allergies Allergy (Verified 10/06/19 15:07) - Review of Systems ROS: No change since H&P - Vital Signs and I&O's Vital Signs: Temperature 98.9 F Pulse Rate [Left Radial] 56 Pulse Rate 73 Respiratory Rate 20 Blood Pressure [Left Arm] 150/65 Blood Pressure 145/66 O2 Sat by Pulse Oximetry 97 Intake and Output: Intake & Output 10/07/19 10/08/19 10/09/19 10/10/19 11:59 11:59 11:59 11:59 Intake Total 1500 / 1500 2980 / 2980 3071 / 3071 700 / 700 Output Total 0 / 0 600 / 600 1200 / 1200 Balance 1500 / 1500 2380 / 2380 1871 / 1871 700 / 700 - Physical Exam Oriented: Normal Eyes: Normal Ear: Normal Nose: Normal Throat: Normal Respiratory: Generalized, Wheezes Cardiovascular: Normal. negative: S3, S4, Murmur : Normal Auscultation: Bowel Sounds: Normal Palpation: Normal Tenderness: Normal Skin: Normal Musculoskeletal: Normal Psychiatric: Normal Mood Description: Calm Affect: Normal Speech Pattern: Clear, Appropriate - Laboratory and Diagnostics Result Diagrams: 10/09/19 05:18 10/09/19 05:18 Labs: 10/06/19 16:20 Blood Blood Culture - Preliminary 10/06/19 16:05 Blood Blood Culture - Preliminary Laboratory WBC 8.3 X10^3/uL (3.6-10.0) 10/09/19 05:18 RBC 4.27 X10^6/uL (3.5-5.4) 10/09/19 05:18 Hgb 12.2 g/dL (12.0-16.0) 10/09/19 05:18 Hct 37.4 % (36.0-47.0) 10/09/19 05:18 MCV 87.7 fL (80.0-100.0) 10/09/19 05:18 MCH 28.5 pg (27.0-34.0) 10/09/19 05:18 MCHC 32.5 g/dL (33.0-35.0) L 10/09/19 05:18 RDW 14.3 % (11.6-16.5) 10/09/19 05:18 Plt Count 252 X10^3/uL (150.0-450.0) 10/09/19 05:18 MPV 9.6 fL (7.4-11.0) 10/09/19 05:18 Neut % (Auto) 57.0 % (42.0-75.0) 10/09/19 05:18 Lymph % (Auto) 32.9 % (21.0-51.0) 10/09/19 05:18 [place] % (Auto) 7.5 % (0.0-13.0) 10/09/19 05:18 Eos % (Auto) 2.3 % (0.9-2.9) 10/09/19 05:18 Baso % (Auto) 0.3 % (0.2-1.0) 10/09/19 05:18 Neut # (Auto) 4.8 x10^3/uL (2.2-4.8) 10/09/19 05:18 Lymph # (Auto) 2.7 X10^3/uL (1.3-2.9) 10/09/19 05:18 [place] # (Auto) 0.6 x10^3/uL (0.3-0.8) 10/09/19 05:18 Eos # (Auto) 0.2 x10^3/uL (0.0-0.2) 10/09/19 05:18 Baso # (Auto) 0.0 X10^3/uL (0.0-0.1) 10/09/19 05:18 Absolute Nucleated RBC 0.0 /100WBC 10/09/19 05:18 Sample Site Lb 10/07/19 04:39 ABG pH 7.430 (7.35-7.45) 10/07/19 04:39 ABG pCO2 38.0 mmHg (35.0-45.0) 10/07/19 04:39 ABG pO2 102.0 mmHg (80.0-100.0) H 10/07/19 04:39 ABG HCO3 25.2 mmol/L (22-26) 10/07/19 04:39 ABG O2 Saturation 98.0 % (90-100) 10/07/19 04:39 ABG Base Excess 1.0 mmol/L (-2.0-2.0) 10/07/19 04:39 Chris Test N/a 10/07/19 04:39 A-a Gradient 50.0 mmHg 10/07/19 04:39 FiO2 28.0 10/07/19 04:39 Blood Gas Comments Shine well ae 10/07/19 04:39 Sodium 139 mmol/L (136-145) 10/09/19 05:18 Corrected Sodium TNP 10/09/19 05:18 Potassium 3.9 mmol/L (3.5-5.1) 10/09/19 05:18 Chloride 106 mmol/L (98-107) 10/09/19 05:18 Carbon Dioxide 27.4 mmol/L (21-32) 10/09/19 05:18 BUN 16 mg/dL (7-18) 10/09/19 05:18 Creatinine 0.98 mg/dL (0.55-1.02) 10/09/19 05:18 Est GFR (MDRD) Af Amer > 60 (>60) 10/09/19 05:18 Est GFR (MDRD) Non-Af 59 (>60) 10/09/19 05:18 Glucose 110 mg/dL (65-99) H 10/09/19 05:18 Lactic Acid 0.6 mmol/L (0.4-2.0) 10/06/19 16:05 Calcium 7.9 mg/dL (8.5-10.1) L 10/09/19 05:18 Corrected Calcium 9.0 mg/dL (8.5-10.1) 10/09/19 05:18 Magnesium 2.5 mg/dL (1.7-2.9) 10/07/19 04:15 Ferritin 248 ng/mL (8-252) 10/09/19 05:18 Total Bilirubin 0.10 mg/dL (0.2-1.0) L 10/09/19 05:18 AST 18 Units/L (15-37) 10/09/19 05:18 ALT 21 Units/L (12-78) 10/09/19 05:18 Alkaline Phosphatase 66 Units/L (46-116) 10/09/19 05:18 Lactate Dehydrogenase 426 Units/L (81-234) H 10/06/19 16:20 Creatine Kinase 27 Units/L (26-192) 10/06/19 16:05 CK-MB (CK-2) < 1.0 ng/mL (0-4.0) 10/06/19 16:05 CK/CKMB % Calc 3.7 % (<4) 10/06/19 16:05 Troponin I < 0.02 ng/mL (0-1.5) 10/06/19 16:05 C-Reactive Protein 12.30 mg/L (0-3.0) H 10/09/19 05:18 B-Natriuretic Peptide 29.1 pg/mL (0-79) 10/06/19 16:05 Total Protein 6.0 g/dL (6.4-8.2) L 10/09/19 05:18 Albumin 2.6 g/dL (3.4-5.0) L 10/09/19 05:18 Globulin 3.4 g/dL (2.5-4.5) 10/09/19 05:18 Albumin/Globulin Ratio 0.8 Ratio (1.1-2.1) L 10/09/19 05:18 - Plan (1) COVID-19 Status: Acute Plan: REMDESIVIR 100MG IV DAILY, 1/2NS AT 50 ML/HR, LEVAQUIN 500MG IV DAILY, REMDESIVIR 100MG IV DAILY, TORADOL 30MG IV Q8H, HUMULIN R SLIDING SCALE, TUSSIONEX 5ML Q12H, TESSALON PERLES, DUONEBS TID, PULMICORT BID, AND THE POTASSIUM AND MAGNESIUM PROTOCOLS (2) Pneumonia Status: Acute Qualifiers: Pneumonia type: due to unspecified organism Laterality: bilateral Lung location: unspecified part of lung Qualified Code(s): J18.9 - Pneumonia, unspecified organism (3) Hypoxia Status: Acute (4) Dyspnea Status: Acute Qualifiers: Dyspnea type: shortness of breath Qualified Code(s): R06.02 - Shortness of breath; R06.00 - Dyspnea, unspecified; R06.01 - Orthopnea
[2019-10-10] MEDS ORDERED: NS 1/2 1000 ML IV 1,000 ML IV ONE (04:16)
[2019-10-10 05:19] LABS: BASOPHILS % (AUTO) 0.3 % (0.2-1.0); EOSINOPHILS # (AUTO) 0.2 x10^3/uL (0.0-0.2); EOSINOPHILS % (AUTO) 2.7 % (0.9-2.9); HEMATOCRIT 36.3 % (36.0-47.0); HEMOGLOBIN 12.3 g/dL (12.0-16.0); LYMPHOCYTES # (AUTO) 3.2 X10^3/uL (1.3-2.9); LYMPHOCYTES % (AUTO) 35.4 % (21.0-51.0); MEAN CORPUSCULAR HEMOGLOBIN 29.4 pg (27.0-34.0); MEAN CORPUSCULAR HGB CONC 33.8 g/dL (33.0-35.0); MEAN CORPUSCULAR VOLUME 87.1 fL (80.0-100.0); MONOCYTES # (AUTO) 0.7 x10^3/uL (0.3-0.8); MONOCYTES % (AUTO) 8.1 % (0.0-13.0); NEUTROPHILS # (AUTO) 4.8 x10^3/uL (2.2-4.8); NEUTROPHILS % (AUTO) 53.5 % (42.0-75.0); PLATELET COUNT 245 X10^3/uL (150.0-450.0); RED BLOOD COUNT 4.17 X10^6/uL (3.5-5.4); RED CELL DISTRIBUTION WIDTH 13.9 % (11.6-16.5)
[2019-10-10 05:30] LABS: ALBUMIN 2.6 g/dL (3.4-5.0); ALKALINE PHOSPHATASE 73 Units/L (46-116); BLOOD UREA NITROGEN 19 mg/dL (7-18); CALCIUM 7.9 mg/dL (8.5-10.1); CARBON DIOXIDE 26.7 mmol/L (21-32); CHLORIDE 103 mmol/L (98-107); COR NA(FOR HYPERGLY) 139 mmol/L (136-145); CREATININE 0.84 mg/dL (0.55-1.02); SODIUM 139 mmol/L (136-145); TOTAL PROTEIN 5.9 g/dL (6.4-8.2); eGFR NON BLACK RACES > 60 (>60)
[2019-10-10] MEDS: TUSSIONEX PENNKINETIC SUSP PO PRN (05:32)
[2019-10-10] MEDS: NS 1/2 1000 ML IV 1,000 ML IV PRN (05:44)
[2019-10-10 05:57] LABS: ALANINE AMINOTRANSFERASE 18 Units/L (12-78); ASPARTATE AMINO TRANSFERASE 31 Units/L (15-37)
--- NOTE | 2019-10-10 05:58 | RAD ---
Chest AP portableIndication: Dyspnea and asthmaCOMPARISONJune 2018FINDINGSThere is no pneumothorax. Monitoring leads obscure minimal detail. There is prominent heart size with bilateral pulmonary opacities and increased interstitial markings.IMPRESSIONFindings are unchanged from the prior. Cardiomegaly with patchy pulmonary opacities. Edema versus pneumonia or viral pneumonitis.Electronically signed by: LEONIDAS STARK (Oct 10, 2019 05:57:11)
[2019-10-10] MEDS: DUONEB 0.5 MG/3 MG (3 mL) NEB SCH ×3 (06:16→20:38)
[2019-10-10] MEDS: TORADOL 30 MG VIAL IVP SCH ×4 (06:17→22:57)
[2019-10-10] MEDS ORDERED: VSL#3 PO ONE (09:41)
[2019-10-10] MEDS: LEVAQUIN PREMIX IV 500 MG 500 MG/100 ML BAG IV SCH (09:43)
[2019-10-10] MEDS: LOVENOX INJ 40 MG SYR SC SCH (09:43)
[2019-10-10] MEDS: ROBITUSSIN DM PO SCH ×4 (09:43→20:50)
[2019-10-10] MEDS: PROzac PO SCH (09:44)
[2019-10-10] MEDS: SINGULAIR TAB 10 MG PO SCH (09:44)
[2019-10-10] MEDS: PriLOSEC PO SCH (09:44)
[2019-10-10] MEDS: REMDESIVIR (INVESTIGATIONAL DRUG GS-5734) 100 MG in NS 250 ML IV 250 ML IV SCH (09:45)
[2019-10-10] MEDS: SYNTHROID 75 mcg TAB PO SCH (09:45)
[2019-10-10] MEDS: VSL#3 PO SCH (09:45)
[2019-10-10] MEDS: PULMICORT NEB TX 0.5 MG NEB SCH ×2 (10:28→20:38)
[2019-10-10 10:38] LABS: ABG BASE EXCESS 2.6 mmol/L (-2.0-2.0); ABG HCO3 27.9 mmol/L (22-26)
[2019-10-10] MEDS ORDERED: DITROPAN TAB 5 MG PO ONE (12:29)
[2019-10-10] MEDS: DITROPAN TAB 5 MG PO SCH ×2 (13:22→20:50)
[2019-10-10] MEDS ORDERED: TORADOL 30 MG VIAL ONE (17:30)
[2019-10-10] MEDS: KLONOPIN TAB 0.5 MG PO PRN (20:50)
--- NOTE | 2019-10-10 21:43 | PCM.PROG ---
Progress Note - Progress Note for Day of Date of Exam: 10/10/19 - Subjective Subjective: IS BEING TREATED FOR COVID-19, PNEUMONIA, HYPOXIA, AND SHORTNESS OF BREATH. TODAY, SHE IS ALERT AND OREINTED, LYING IN BED ON MORNING ROUNDS. SHE CONTINUES WITH A NON-PRODUCTIVE COUGH AND SHORTNESS OF BREATH. SHE HAS BEEN AFEBRILE THROUGHOUT THE NIGHT. ON EXAMINATION, HEART IS REGULAR IN RATE AND RHYTHM. BILATERAL LUNGS ARE NOTED WITH SCATTERED WHEEZING THROUGHOUT. ABDOMEN IS ROUND, SOFT, AND NON-TENDER WITH NORMAL BOWEL SOUNDS NOTED IN ALL QUADRANTS. HER VITALS THIS MORNING ARE: 98.8-57-22-95%-132/63. LABS WERE OBTAINED. ABNORMAL LAB VALUES INCLUDE THE FOLLOWING: BUN 19, GLUCOSE 116, CALCIUM 7.9, CRP 6.00, TOTAL PROTEIN 5.9, ALBUMIN 2.6. BLOOD CULTURES ARE PENDING. A CHEST XRAY WAS OBTAINED AND REVEALED: Findings are unchanged from the prior. Cardiomegaly with patchy pulmonary opacities. Edema versus pneumonia or viral pneumonitis. SHE IS CURRENTLY RECEIVING 1/2NS AT 50 ML/HR, LEVAQUIN 500MG IV DAILY, REMDESIVIR 100MG IV DAILY, TUSSIONEX 5ML Q12H, TESSALON PERLES, SOLU-MEDROL 40MG IV Q8H, TORADOL 30MG IV Q8H, HUMULIN R SLIDING SCALE, DUONEBS TID AND PULMICORT NEBS BID, AND THE POTASSIUM AND MAGNESIUM PROTOCOLS. WE WILL CONTINUE WITH CURRENT PLAN OF CARE TODAY. OTHERWISE, WE WILL FOLLOW UP WITH AM LABS AND CHEST XRAY AND CONTINUE TO MONITOR. - Past Medical Family Social History Past Med/Fam/Surg Hx: No changes since H&P Allergies: Allergies No Known Drug Allergies Allergy (Verified 10/06/19 15:07) - Review of Systems ROS: No change since H&P - Vital Signs and I&O's Vital Signs: Temperature 99.7 F Pulse Rate [Left Radial] 56 Pulse Rate 66 Respiratory Rate 13 Blood Pressure [Left Arm] 150/65 Blood Pressure 119/59 O2 Sat by Pulse Oximetry 98 Intake and Output: Intake & Output 10/08/19 10/09/19 10/10/19 10/11/19 11:59 11:59 11:59 11:59 Intake Total 2980 / 2980 3071 / 3071 2570 / 2570 1604 / 1604 Output Total 600 / 600 1200 / 1200 Balance 2380 / 2380 1871 / 1871 2570 / 2570 1604 / 1604 - Physical Exam Oriented: Normal Eyes: Normal Ear: Normal Nose: Normal Throat: Normal Respiratory: Generalized, Wheezes Cardiovascular: Normal. negative: S3, S4, Murmur : Normal Auscultation: Bowel Sounds: Normal Tenderness: Normal Skin: Normal Musculoskeletal: Normal Psychiatric: Normal Mood Description: Calm Affect: Normal Speech Pattern: Clear, Unclear - Laboratory and Diagnostics Result Diagrams: 10/10/19 04:24 10/10/19 04:24 Labs: 10/06/19 16:20 Blood Blood Culture - Preliminary 10/06/19 16:05 Blood Blood Culture - Preliminary Laboratory WBC 9.0 X10^3/uL (3.6-10.0) 10/10/19 04:24 RBC 4.17 X10^6/uL (3.5-5.4) 10/10/19 04:24 Hgb 12.3 g/dL (12.0-16.0) 10/10/19 04:24 Hct 36.3 % (36.0-47.0) 10/10/19 04:24 MCV 87.1 fL (80.0-100.0) 10/10/19 04:24 MCH 29.4 pg (27.0-34.0) 10/10/19 04:24 MCHC 33.8 g/dL (33.0-35.0) 10/10/19 04:24 RDW 13.9 % (11.6-16.5) 10/10/19 04:24 Plt Count 245 X10^3/uL (150.0-450.0) 10/10/19 04:24 MPV 10.0 fL (7.4-11.0) 10/10/19 04:24 Neut % (Auto) 53.5 % (42.0-75.0) 10/10/19 04:24 Lymph % (Auto) 35.4 % (21.0-51.0) 10/10/19 04:24 [place] % (Auto) 8.1 % (0.0-13.0) 10/10/19 04:24 Eos % (Auto) 2.7 % (0.9-2.9) 10/10/19 04:24 Baso % (Auto) 0.3 % (0.2-1.0) 10/10/19 04:24 Neut # (Auto) 4.8 x10^3/uL (2.2-4.8) 10/10/19 04:24 Lymph # (Auto) 3.2 X10^3/uL (1.3-2.9) H 10/10/19 04:24 [place] # (Auto) 0.7 x10^3/uL (0.3-0.8) 10/10/19 04:24 Eos # (Auto) 0.2 x10^3/uL (0.0-0.2) 10/10/19 04:24 Baso # (Auto) 0.0 X10^3/uL (0.0-0.1) 10/10/19 04:24 Absolute Nucleated RBC 0.1 /100WBC 10/10/19 04:24 Sample Site Left brachial 10/10/19 10:30 ABG pH 7.400 (7.35-7.45) 10/10/19 10:30 ABG pCO2 45.0 mmHg (35.0-45.0) 10/10/19 10:30 ABG pO2 108.0 mmHg (80.0-100.0) H 10/10/19 10:30 ABG HCO3 27.9 mmol/L (22-26) H 10/10/19 10:30 ABG O2 Saturation 98.0 % (90-100) 10/10/19 10:30 ABG Base Excess 2.6 mmol/L (-2.0-2.0) H 10/10/19 10:30 Chris Test Na 10/10/19 10:30 A-a Gradient 35.0 mmHg 10/10/19 10:30 FiO2 28.0 10/10/19 10:30 Blood Gas Comments Shine well aw 10/10/19 10:30 Sodium 139 mmol/L (136-145) 10/10/19 04:24 Corrected Sodium 139 mmol/L (136-145) 10/10/19 04:24 Potassium 3.9 mmol/L (3.5-5.1) 10/10/19 04:24 Chloride 103 mmol/L (98-107) 10/10/19 04:24 Carbon Dioxide 26.7 mmol/L (21-32) 10/10/19 04:24 BUN 19 mg/dL (7-18) H 10/10/19 04:24 Creatinine 0.84 mg/dL (0.55-1.02) 10/10/19 04:24 Est GFR (MDRD) Af Amer > 60 (>60) 10/10/19 04:24 Est GFR (MDRD) Non-Af > 60 (>60) 10/10/19 04:24 Glucose 116 mg/dL (65-99) H 10/10/19 04:24 Lactic Acid 0.6 mmol/L (0.4-2.0) 10/06/19 16:05 Calcium 7.9 mg/dL (8.5-10.1) L 10/10/19 04:24 Corrected Calcium 9.0 mg/dL (8.5-10.1) 10/10/19 04:24 Magnesium 2.5 mg/dL (1.7-2.9) 10/07/19 04:15 Ferritin 251 ng/mL (8-252) 10/10/19 04:24 Total Bilirubin 0.20 mg/dL (0.2-1.0) 10/10/19 04:24 AST 31 Units/L (15-37) 10/10/19 04:24 ALT 18 Units/L (12-78) 10/10/19 04:24 Alkaline Phosphatase 73 Units/L (46-116) 10/10/19 04:24 Lactate Dehydrogenase 426 Units/L (81-234) H 10/06/19 16:20 Creatine Kinase 27 Units/L (26-192) 10/06/19 16:05 CK-MB (CK-2) < 1.0 ng/mL (0-4.0) 10/06/19 16:05 CK/CKMB % Calc 3.7 % (<4) 10/06/19 16:05 Troponin I < 0.02 ng/mL (0-1.5) 10/06/19 16:05 C-Reactive Protein 6.00 mg/L (0-3.0) H 10/10/19 04:24 B-Natriuretic Peptide 29.1 pg/mL (0-79) 10/06/19 16:05 Total Protein 5.9 g/dL (6.4-8.2) L 10/10/19 04:24 Albumin 2.6 g/dL (3.4-5.0) L 10/10/19 04:24 Globulin 3.3 g/dL (2.5-4.5) 10/10/19 04:24 Albumin/Globulin Ratio 0.8 Ratio (1.1-2.1) L 10/10/19 04:24 - Plan (1) COVID-19 Status: Acute Plan: REMDESIVIR 100MG IV DAILY, 1/2NS AT 50 ML/HR, LEVAQUIN 500MG IV DAILY, REMDESIVIR 100MG IV DAILY, TORADOL 30MG IV Q8H, HUMULIN R SLIDING SCALE, TUSSIONEX 5ML Q12H, TESSALON PERLES, DUONEBS TID, PULMICORT BID, AND THE POTASSIUM AND MAGNESIUM PROTOCOLS (2) Pneumonia Status: Acute Qualifiers: Pneumonia type: due to unspecified organism Laterality: bilateral Lung location: unspecified part of lung Qualified Code(s): J18.9 - Pneumonia, unspecified organism (3) Hypoxia Status: Acute (4) Dyspnea Status: Acute Qualifiers: Dyspnea type: shortness of breath Qualified Code(s): R06.02 - Shortness of breath; R06.00 - Dyspnea, unspecified; R06.01 - Orthopnea
[2019-10-10] MEDS: SNACK - Diabetic Appropriate PO SCH (22:55)
[2019-10-11] MEDS ORDERED: NS 1/2 1000 ML IV 1,000 ML IV ONE (04:40)
[2019-10-11] MEDS: NS 1/2 1000 ML IV 1,000 ML IV PRN (04:55)
[2019-10-11] MEDS: DUONEB 0.5 MG/3 MG (3 mL) NEB SCH ×2 (05:39)
[2019-10-11 06:03] LABS: ALBUMIN 2.6 g/dL (3.4-5.0); ALKALINE PHOSPHATASE 73 Units/L (46-116); BASOPHILS % (AUTO) 0.4 % (0.2-1.0); BLOOD UREA NITROGEN 15 mg/dL (7-18); CALCIUM 7.8 mg/dL (8.5-10.1); CARBON DIOXIDE 22.6 mmol/L (21-32); CHLORIDE 104 mmol/L (98-107); COR CA(FOR HYPOALB) 8.9 mg/dL (8.5-10.1); COR NA(FOR HYPERGLY) 138 mmol/L (136-145); CREATININE 0.92 mg/dL (0.55-1.02); EOSINOPHILS # (AUTO) 0.3 x10^3/uL (0.0-0.2); EOSINOPHILS % (AUTO) 3.9 % (0.9-2.9); HEMATOCRIT 38.1 % (36.0-47.0); LYMPHOCYTES % (AUTO) 40.8 % (21.0-51.0); MEAN CORPUSCULAR HEMOGLOBIN 29.3 pg (27.0-34.0); MEAN CORPUSCULAR HGB CONC 34.1 g/dL (33.0-35.0); MEAN PLATELET VOLUME 9.1 fL (7.4-11.0); MONOCYTES # (AUTO) 0.6 x10^3/uL (0.3-0.8); MONOCYTES % (AUTO) 8.3 % (0.0-13.0); NEUTROPHILS # (AUTO) 3.5 x10^3/uL (2.2-4.8); NEUTROPHILS % (AUTO) 46.6 % (42.0-75.0); PLATELET COUNT 257 X10^3/uL (150.0-450.0); RED BLOOD COUNT 4.43 X10^6/uL (3.5-5.4); SODIUM 138 mmol/L (136-145); TOTAL PROTEIN 5.9 g/dL (6.4-8.2); WHITE BLOOD COUNT 7.5 X10^3/uL (3.6-10.0); eGFR NON BLACK RACES > 60 (>60)
[2019-10-11] MEDS: TORADOL 30 MG VIAL IVP SCH (06:14)
[2019-10-11 06:23] LABS: ALANINE AMINOTRANSFERASE 13 Units/L (12-78); ASPARTATE AMINO TRANSFERASE 31 Units/L (15-37)
--- NOTE | 2019-10-11 06:35 | RAD ---
HISTORYSOB asthmaSTUDYAP [id number] cardiac size and contour. Diffuse interstitial prominence is essentially unchanged. There is no evidence for developing segmental or lobar consolidation, pneumothorax or pleural fluid.IMPRESSIONNo change since 1 day prior. Described interstitial pulmonary pattern may be in part chronic; superimposed congestive/inflammatory changes are likely.Electronically signed by: MIKKI MCNEILL (Oct 11, 2019 06:33:44)
[2019-10-11] MEDS: REMDESIVIR (INVESTIGATIONAL DRUG GS-5734) 100 MG in NS 250 ML IV 250 ML IV SCH (08:30)
[2019-10-11] MEDS: PROzac PO SCH (08:49)
[2019-10-11] MEDS: SYNTHROID 75 mcg TAB PO SCH (08:49)
[2019-10-11] MEDS: SINGULAIR TAB 10 MG PO SCH (08:50)
[2019-10-11] MEDS: VSL#3 PO SCH (08:50)
[2019-10-11] MEDS: DITROPAN TAB 5 MG PO SCH (08:50)
[2019-10-11] MEDS: PriLOSEC PO SCH (08:51)
[2019-10-11] MEDS: LEVAQUIN PREMIX IV 500 MG 500 MG/100 ML BAG IV SCH (08:51)
[2019-10-11] MEDS: ROBITUSSIN DM PO SCH (08:51)
[2019-10-11] MEDS: PULMICORT NEB TX 0.5 MG NEB SCH (09:45)
[2019-10-11] MEDS: LOVENOX INJ 40 MG SYR SC SCH (09:46)
[2019-10-11 12:31] VITALS: BP 131/60
== END 2019-10-11 13:41 | disposition home or self-care (01) | DRG 177 ==
LOC: ER 15:05 → ICU 17:56 → OBS 10-07 08:49 → ICU 10-07 08:50
PROVIDERS: ADMIT Obstetrics & Gynecology Obstetrics; ATTEND Internal Medicine
DX: J18.8 Other pneumonia, unspecified organism; E78.2 Mixed hyperlipidemia; R09.02 Hypoxemia; Z79.899 Other long term (current) drug therapy; U07.1 COVID-19; R07.2 Precordial pain; R79.82 Elevated C-reactive protein (CRP)
CPT/HCPCS: 36415; 36600; 71010; 71045; 80053; 82550; 82553; 82728; 82803; 83605; 83615; 83735; 83880; 84484; 85025; 86140; 87040; 93005; 94640; 94760; 96365; 96374; 99285; A4222; J0696; J1650; J1885; J1956; J2920; J3262; J3411; J3475; J7050; J7620; J7626